=== PATIENT | female | born 1940 | race Caucasian/White ===

== ENCOUNTER 2020-05-11 11:43 | Emergency (ER) | payer MEDICARE, SELFPAY ==
[2020-05-11 11:53] VITALS: BP 178/78; PULSE 69; RESP 18; TEMP 36.9; O2SAT 97; BMI 25.7
[2020-05-11 12:00] VITALS: RESP 18
--- NOTE | 2020-05-11 12:09 | XR_ITS ---
WS: [id number] Lumbar spine, 3 views, 05/11/2020 Clinical Data: pain Comparison: None. Findings: No compression fractures or subluxation is seen. There is degenerative disc narrowing at L1-L2, L2-L3 , L4-L5 and L5-S1. The transverse processes and SI joints are normal. Mild osteoarthritic spurring of all lumbar vertebral bodies is seen. There is a slight levoscoliosis. Osteoporosis is present. There are clips in the right upper quadrant from a cholecystectomy. There is calcification of the wall of the abdominal aorta but no aneurysm is noted. XR/XR lumbar spine 2-3V* [id number] Impression: 1 levoscoliosis and osteoporosis. 2. Multiple levels of degenerative disc disease. 3. Osteoarthritic spurring of all the lumbar vertebral bodies.
--- NOTE | 2020-05-11 12:09 | ED_ITS ---
HPI - Back Pain/Injury General: Chief Complaint: Back Pain/Injury Stated Complaint: BACK PAIN Time Seen by Provider: 05/11/20 11:54 History of Present Illness: HPI Narrative: Patient complains about back pain left side radiating down to her hip x2 days. Says getting worse having hard time ambulating. Does take pain medicine for her back pain she does have pretty severe arthritis she states. Was told to come here by her primary care provider because they can get her in today. MD elicited complaint: back pain Pertinent past history: arthritis Onset (ago): day(s) Timing: constant and progressively worsening Severity: moderate Similar Symptoms Previously: Yes Quality: sharp and aching Location: lumbar spine and left lower back Radiation: buttocks Exacerbating factors: movement Relieving factors: immobilization Associated symptoms: Reports no associated symptoms; Deny abdominal pain, chills, fever(s), nausea or vomiting Treatments prior to arrival: NSAIDS and prescription analgesics Review of Systems Const: Denies: fever(s), chills or body aches Eyes: Denies: change in vision or blurry vision ENMT: Denies: throat pain or nasal congestion Card: Denies: chest pain or dyspnea on exertion Resp: Denies: dyspnea, productive cough or non-productive cough GI: Denies: abdominal pain, nausea or vomiting Musc: Reports: back pain; Denies: extremity pain Skin/Breast: Denies: rash Neuro: Denies: headache(s) Psych: Denies: anxiety or depression Twin/Lymph: Denies: easy bruising Physical Exam Const: COMMON NORMALS: no acute distress, average body habitus and patient oriented x3 HENMT: COMMON NORMALS: normocephalic HEAD & SCALP: normal to inspection and normocephalic FACE & SINUS: normal facial exam Eye: COMMON NORMALS: conjunctivae normal GENERAL EYE: appearance normal, both eyes and all related structures CONJUNCTIVA: Yes conjunctivae normal Neck/C-Spine: COMMON NORMALS: no JVD Chest: COMMONS NORMALS: normal inspection of the chest Resp: COMMON NORMALS: normal respiratory effort and clear to auscultation bilaterally AUSCULTATION: clear to auscultation bilaterally Cardio: COMMON NORMALS: no JVD, regular rate and regular rhythm RATE: regular rate RHYTHM: regular rhythm GI: COMMON NORMALS: Normal to inspection, nondistended, normoactive bowel sounds present Back/Pelvis: LUMBAR SPINE/LOWER BACK: Yes straight leg raise positive left (Tenderness to left buttocks left flank and goes mid aspect of the buttock did not radiating further than that. Does hurt with straight leg lift) Straight leg raise positive details left: at 40 degrees Extremity: COMMON NORMALS: normal to inspection and full ROM Neuro: COMMON NORMALS: patient oriented x3 Course Vital Signs: Vital signs: Vital Signs Temperature 98.4 F 05/11/20 11:53 Pulse Rate 69 05/11/20 11:53 Respiratory Rate 18 05/11/20 12:00 Blood Pressure 178/78 05/11/20 11:53 Pulse Oximetry 97 05/11/20 11:53 Coding Level of Care Code ED Director Consumer for Dominic Mendiola
--- NOTE | 2020-05-11 12:10 | XR_ITS ---
WS: [id number] Left hip, AP and frog leg, AP pelvis, 05/11/2020 Clinical Data: pain Comparison: None. Findings: No fractures or dislocations are seen. The hips are normal. The soft tissues are not remarkable. The adjacent pelvis is normal. Minimal vascular calcification is seen. The left hip shows no abnormalities. XR/XR hip LT 2-3V wo/w pel* [id number] Impression: Negative left hip.
[2020-05-11] MEDS: ketorolac 60 mg/2 mL INJ IM (12:21)
[2020-05-11] MEDS: methylPREDNISolone (DEPO) 80 MG/ML INJ 1 mL IM (12:21)
[2020-05-11 13:00] VITALS: BP 158/78; PULSE 70; RESP 17; O2SAT 100
[2020-05-11 13:16] VITALS: BP 158/78; PULSE 70; RESP 17; O2SAT 100
== END 2020-05-11 13:17 | disposition home or self-care (01) ==
LOC: ER 13:15
PROVIDERS: Emergency Provider Nurse Practitioner Family
DX: M54.9 Dorsalgia, unspecified (principal)
CPT/HCPCS: 12345; 72100; 73502; 96372; 99281; 99283; J1040; J1885

== ENCOUNTER 2020-10-02 14:53 | Outpatient (CLI) | payer MEDICARE, SELFPAY ==
--- NOTE | 2020-10-02 | XR_ITS ---
WS: [id number] SCREENING DEXA SCAN [employer] CLINICAL INFORMATION: ASYMPTOMATIC MENOPAUSAL STATE COMPARISON: None. FINDINGS: The L1-L4 bone mineral density measures 1.133 g/cm2. This corresponds to a T score score of -0.4 and Z score of 1.4. Left femoral neck bone mineral density measures 0.864 g/cm2. This corresponds to a T score of -1.1 an d Z score of 0.9. Right femoral neck bone mineral density measures 0.827 g/cm2. This corresponds to a T score -1.4of an d Z score of 0.6. Mean femoral neck bone mineral density measures 0.845 g/cm2. This corresponds to a T score of -1.3 an d Z score of 0.8. XR/XR DEXA axial skeleton* [id number] IMPRESSION: Osteopenia in the femoral necks. Patient's FRAX calculated 10 year probability for major osteoporotic fracture i s 26.7 % and osteoporotic hip fracture is 8.9%.
--- NOTE | 2020-10-02 15:01 | MM_ITS ---
WS: [id number] BILATERAL SCREENING DIGITAL MAMMOGRAM WITH CAD HISTORY: SCREENING COMPARISON: 01/08/2018 Bilateral CC and MLO views submitted. Computer aided detection analyzed. Breast composition: There are scattered areas of fibroglandular density. No suspicious masses, microc alcifications or architectural distortion. Moderately severe breast arterial calcifications. Stable a symmetry in the lateral RIGHT breast. MM/[id number] IMPRESSION: BI-RADS: 2-Benign FOLLOW UP: 1 Year Follow-up
== END 2020-10-02 14:54 | disposition home or self-care (01) ==
PROVIDERS: PCP Nurse Practitioner Family; Visit Provider Nurse Practitioner Family
DX: Z12.31 Encounter for screening mammogram for malignant neoplasm of breast (principal); Z78.0 Asymptomatic menopausal state; M85.88 Other specified disorders of bone density and structure, other site
CPT/HCPCS: 77067; 77080

== ENCOUNTER 2022-01-14 14:38 | Outpatient (CLI) | payer MEDICARE, SELFPAY ==
--- NOTE | 2022-01-14 14:54 | MM_ITS ---
WS: [id number] VIEWS: MLO and CC views both breasts. 3D digital tomosynthesis is also included in this exam. Comparison made with prior exam of 01/08/2018 and 10/02/2020. Findings: There was no sign of mass, architectural distortion or suspicious calcification in either breast. Sc attered fibroglandular densities MM/[id number] Impression: BI-RADS: 2-Benign FOLLOW-UP: 1 Year Follow-up This mammogram was also analyzed by the Computer Aided Detection System R2 Imag e Stone Finisher.
== END 2022-01-14 14:39 | disposition home or self-care (01) ==
PROVIDERS: PCP Nurse Practitioner Family; Visit Provider Nurse Practitioner Family
DX: Z12.31 Encounter for screening mammogram for malignant neoplasm of breast (principal)
CPT/HCPCS: 77063; 77067

== ENCOUNTER 2023-02-03 11:00 | Emergency (ER) | payer MEDICARE, SELFPAY ==
[2023-02-03 11:14] VITALS: BP 123/70; PULSE 61; RESP 18; TEMP 36.7; O2SAT 97
--- NOTE | 2023-02-03 13:15 | XRR_ITS ---
PROCEDURE INFORMATION: Exam: XR Left Hip Exam date and time: 02/03/2023 1:56 PM Age: 82 years old Clinical indication: Hip pain; Left hip; Additional info: Hip pain, no injury TECHNIQUE: Imaging protocol: Radiologic exam of the left hip. Views: 2 or 3 views hip with pelvis when performed. COMPARISON: CR XR hip LT 2-3V wo/w pel* [id number] 05/11/2020 12:47 PM FINDINGS: Bones/joints: Unremarkable. No acute fracture. Soft tissues: Unremarkable. XR/XR hip LT 2-3V wo/w pel* [id number] IMPRESSION: No acute findings.
--- NOTE | 2023-02-03 13:15 | USCV_ITS ---
Lorene Gonsalez Age: 82 Gender: F : 1940 Exam Date: 02/03/2023 13:40 Ordering Phys: Trung Lainez Technologist: ADRI Exam Location: [facility] – [place] Indication: Lt Upper Leg Pain HISTORY: Lower extremity pain. PROCEDURES: Venous duplex imaging was performed in only the left lower extremity. The following venous structures were evaluated: common femoral vein, profunda vein, proximal portion of the greater saphenous vein, superficial femoral vein, and the popliteal vein. In addition, the posterior tibial and peroneal trunk were evaluated. Serial compression, augmentation maneuvers, and spectral Doppler flow evaluation were performed. FINDINGS: No evidence of DVT seen in any vessel visualized at this time. CONCLUSIONS No evidence of left lower extremity DVT. Maxime Austin MD (Electronically Signed) Final Date: 03 Feb 2023 15:41 S
--- NOTE | 2023-02-03 13:19 | ED_ITS ---
HPI - Extremity Problem General: Chief complaint: Extremity Problem,Nontraumatic Stated complaint: Right Leg pain Time Seen by Provider: 02/03/23 13:03 History of Present Illness: Patient is a 82-year-old female who comes to the ED with left leg pain. Symptoms started approximately 4 days ago. She denies any known injury or trauma to cause pain. She states that pain is located in her left thigh and also radiates into her hip. She describes the pain as a muscle aching type pain and thinks she might of pulled a muscle. Denies any history of blood clots. Denies any left leg swelling chest pain, shortness of breath or hemoptysis. Patient is on Plavix currently. Associated symptoms: Deny chest pain, fever(s) or rash Review of Systems Const: Denies: fever(s), chills or fatigue Eyes: Denies: change in vision or eye discomfort ENMT: Denies: throat pain, odynophagia, nasal discharge or nasal congestion Card: Denies: chest pain, palpitations, edema, swelling of feet/ankles, dyspnea on exertion or orthopnea Resp: Denies: dyspnea, productive cough or non-productive cough GI: Denies: abdominal pain, nausea, vomiting, diarrhea, constipation or hematochezia : Denies: flank pain, dysuria or hematuria Musc: Reports: extremity pain (Left leg); Denies: neck pain, back pain or extremity swelling Skin/Breast: Denies: rash or new lesions Neuro: Denies: headache(s), numbness in extremities or weakness in extremities PFS ED PFSH: Medical History Anxiety Arthritis Diverticulitis HTN (hypertension) with goal to be determined Hypothyroid Stroke Surgical History H/O lumpectomy History of hysterectomy with oophorectomy History of partial surgical removal of colon Family History Father Heart attack Mother Brain tumor, malignant rhabdoid Social History Smoking and tobacco status: former smoker Quit status (tobacco): has quit using tobacco Second hand smoke exposure: No Smoking risk assessment/counseling performed?: Yes Alcohol intake: never Desire information about alcohol rehabilitation?: No Counseling given: No Substance/Drug Use: never Desire information about substance/drug rehabilitation?: No Counseling given: No Adopted: No Caregiver/support person: No Lives independently: Yes Household members: family Housing: House Marital status: service: No Current occupational status: retired Sexually active: No Do you think of yourself as: Straight/Heterosexual Current gender identity: Female Physical Exam Const: COMMON NORMALS: no acute distress, patient oriented x3 and alert HENMT: COMMON NORMALS: normocephalic HEAD & SCALP: normocephalic MOUTH: Normal oral and palatal mucosa present THROAT: posterior oropharynx normal and uvula midline Neck/C-Spine: COMMON NORMALS: supple GENERAL: Yes normal visual inspection Resp: COMMON NORMALS: normal respiratory effort, No retractions, No use of accessory muscles and clear to auscultation bilaterally AUSCULTATION: clear to auscultation bilaterally Cardio: COMMON NORMALS: regular rate, regular rhythm, S1 normal heart sound present, S2 normal heart sound present, No gallops present (Cardio), No clicks present (Cardio), No murmurs present (Cardio) and Peripheral pulses 2+ throughout RATE: regular rate RHYTHM: regular rhythm HEART SOUNDS: S1 normal heart sound present and S2 normal heart sound present PERIPHERAL PULSES: Peripheral pulses 2+ throughout GI: COMMON NORMALS: Normal to inspection, nondistended, normoactive bowel sounds present, Soft to palpation, non-tender and no masses PALPATION: Yes Soft to palpation : COMMON NORMALS: Yes no CVA tenderness BLADDER/KIDNEY EXAM: Yes no CVA tenderness Back/Pelvis: COMMON NORMALS: no CVA tenderness Extremity: COMMON NORMALS: normal to inspection, no calf tenderness and no pedal edema Neuro: COMMON NORMALS: patient oriented x3 SENSORIUM/ORIENTATION: Yes alert GAIT: Yes Normal gait present Skin: GENERAL SKIN EXAM: dry skin Course Vital Signs: Vital signs: Vital Signs Temperature 98.0 F 02/03/23 11:14 Pulse Rate 61 02/03/23 11:14 Respiratory Rate 18 02/03/23 11:14 Blood Pressure 123/70 02/03/23 11:14 Pulse Oximetry 97 02/03/23 11:14 Oxygen Delivery Me thod Room Air 02/03/23 11:14 MDM - Extremity (Nontraumatic) Medical Decision Making Patient is a 82-year-old female who comes to the ED with left leg pain. Symptoms started approximately 4 days ago. She denies any known injury or trauma to cause pain. She states that pain is located in her left thigh and also radiates into her hip. She describes the pain as a muscle aching type pain and thinks she might of pulled a muscle. Denies any history of blood clots. Denies any left leg swelling chest pain, shortness of breath or hemoptysis. Patient is on Plavix currently. Vitals are stable. Exam is benign. Patient appears nontoxic and in no acute distress or pain. Left hip x-ray shows no acute findings. Ultrasound venous duplex of left lower extremity shows no DVTs. Patient was diagnosed with left leg pain which is likely muscular in nature and was stable for discharge home. Told to follow-up with PCP in the next week for reevaluation. Patient understood and agreed with plan. Lab Data Radiology Impressions Hip/Pelvis X-Ray 02/03/23 13:15 IMPRESSION: No acute findings. Discharge Plan Discharge Patient Disposition: Home Clinical Impression: Leg pain, left Condition: Stable Prescriptions: No Action levothyroxine 25 mcg tablet 25 mcg PO DAILY atorvastatin 80 mg tablet 80 mg PO DAILY cetirizine [All Day Allergy (cetirizine)] 10 mg tablet 10 mg PO DAILY PRN escitalopram oxalate 10 mg tablet 10 mg PO DAILY clopidogrel 75 mg tablet 75 mg PO DAILY lisinopril 10 mg tablet 10 mg PO DAILY pantoprazole 40 mg tablet,delayed release (DR/EC) 40 mg PO DAILY fluticasone propionate [Flonase Allergy Relief] 50 mcg/actuation spray,suspension 1 spray intranasal DAILY Rx Instructions: administer into each nostril trazodone 50 mg tablet 50 mg PO DAILY cholestyramine (with sugar) 4 gram powder PO Discharge Orders: Discharge ED (Routine); Ordered 02/03/23 Ordered By: Trung Lainez Referrals: Tiff Dexter NP [Primary Care Provider] - Discharge Diet: Regular Discharge Activity: Increase activity as tolerated Activity Restrictions/Additional Instructions: Follow-up with medical provider as directed. Take all medications as previously prescribed. Return to the ER or your medical provider if condition worsens. Please read and understand discharge instructions. Thank you for choosing [facility] for your healthcare needs today. Please realize this is an emergency room and that we are providing you with a medical screening exam and this may not be complete and all inclusive of all the testing and or work up that you may need to determine your ailment or severity of your illness. It is very important that you follow up as instructed or that you return to the Emergency Department should you have concerns or if your condition changes or worsens in any way. Coding Level of Care Code ED Driller Brake Lining for Dominic Mendiola
[2023-02-03] MEDS: acetaminophen 500 mg Tablet 1000 MG PO (14:07)
== END 2023-02-03 15:33 | disposition home or self-care (01) ==
PROVIDERS: Emergency Provider Physician Assistant; PCP Nurse Practitioner Family
DX: M79.605 Pain in left leg (principal); Z79.02 Long term (current) use of antithrombotics/antiplatelets; I10 Essential (primary) hypertension; Z86.73 Personal history of transient ischemic attack (TIA), and cerebral infarction without residual deficits; Z87.891 Personal history of nicotine dependence
CPT/HCPCS: 73502; 93971; 99284

== ENCOUNTER 2024-12-29 10:13 | Outpatient (CLI) | payer MEDICARE, SELFPAY ==
--- NOTE | 2024-12-29 10:19 | CT_ITS ---
WS: [id number] CT HEAD TECHNIQUE: Noncontrast CT of the head obtained from the skullbase to the vertex. CLINICAL INFORMATION: TIA COMPARISON: None. DLP: 980.[address] scans at [facility] use at least one of these dose optimization techniques: automated exposure control; mA and/or kV adjustment per patient size (includes targeted exams where dose is matched to clinical indication); or iterative reconstruction. FINDINGS: No evidence of intracranial hemorrhage or mass effect. Ventricular system and basal cisterns are patent. Moderate small vessel changes with moderate parenchymal volume loss. No extra-axial fluid collections. No evidence of mass or mass effect. Vascular calcification. Paranasal sinuses and mastoid air cells are well aerated. .Normal visualized soft tissues. CT/CT head wo con* [id number] IMPRESSION: 1. No evidence of intracranial hemorrhage or mass effect. 2. Moderate small vessel changes. Moderate parenchymal volume loss. 3. Tiny chronic lacunar infarcts RIGHT thalamus 4. Vascular calcification. 5. No acute intracranial findings.
--- NOTE | 2024-12-29 10:32 | USCV_ITS ---
Lorene Gonsalez Age: 84 Gender: F : 1940 Exam Date: 12/29/2024 11:04 Ordering Phys: Tiff Dexter NP Technologist: DANIELA Exam Location: [facility] – [place] Indication: TIA Risk Factors: Previous Vascular Surgery: Right Brachial BP: / Left Brachial BP: / Right Left Velocity (cm/s) Spectral Plaque Velocity (cm/s) Spectral Plaque Syst/Diast Broadening Syst/Diast Broadening 59.00/ 10.10 Prox CCA 42.20 / 10.90 66.50/ 15.70 Mid CCA 50.10 / 11.60 57.20/ 17.10 Distal CCA 49.50 / 8.70 48.40/ 0.00 Prox ICA 41.20 / 8.40 62.90/ 20.50 Mid ICA 74.20 / 17.20 46.30/ 15.10 Distal ICA 62.50 / 13.50 65.70 ECA 87.00 0.80 ICA/CCA 0.80 Antegrade Vertebral Antegrade 48.20/ 10.40 cm/s 40.80/ 11.80 cm/s Tri Subclavian Tri 65.90 74.40 FINDINGS Comparison: none available. No significant elevation of systolic or diastolic velocities. Waveforms are normal. Diffuse, mild bilateral scattered calcified plaque and intimal thickening throughout the common carotid arteries and extending through the bifurcation. CONCLUSIONS Bilateral ICA stenosis less than 50%. Diffuse carotid atherosclerosis. Dr. Carissa Gonzales DO (Electronically Signed) Final Date: 29 December 2024 11:43 S
== END 2024-12-29 10:14 | disposition home or self-care (01) ==
LOC: RAD 10:17
PROVIDERS: PCP Nurse Practitioner Family; Visit Provider Nurse Practitioner Family
DX: I65.23 Occlusion and stenosis of bilateral carotid arteries (principal); R93.0 Abnormal findings on diagnostic imaging of skull and head, not elsewhere classified; G31.89 Other specified degenerative diseases of nervous system; I67.2 Cerebral atherosclerosis
CPT/HCPCS: 70450; 93880